=== PATIENT | female | born 1970 | race Caucasian/White ===

== ENCOUNTER → 2024-11-13 08:37 | Outpatient (BNVA) | payer BC, SELFPAY | PROVIDERS: Visit Provider Podiatrist Foot & Ankle Surgery | DX: M95.8 Other specified acquired deformities of musculoskeletal system (principal); M21.612 Bunion of left foot; M20.42 Other hammer toe(s) (acquired), left foot; G89.29 Other chronic pain | CPT/HCPCS: 73610; 73620 ==